=== PATIENT | male | born 1980 | race Caucasian/White ===

== ENCOUNTER 2024-01-09 06:02 | Emergency (ER) | payer SELFPAY ==
--- NOTE | ~2024-01-09 | CT_ITS ---
EXAMINATION: CT abdomen pelvis w con DATE: 01/09/2024 08:08 INDICATION: Epigastric abdominal pain, nausea and vomiting TECHNIQUE: Computed tomography (CT) of the abdomen and pelvis was performed with 100 CC Omnipaque 350 intravenous contrast. Automated exposure control and iterative reconstruction technique were employe d. Exam dose: 1476.98 mGy-cm total exam DLP. COMPARISON: None. FINDINGS: The lung bases are clear of infiltrate or consolidation. Normal heart size. No pericardial or pleural effusion. The liver, gallbladder, bile ducts, pancreas, pancreatic duct and spleen are unremarkable. Normal morphology of the adrenal glands. 8.5 mm right renal cyst. The kidneys are otherwise unremarkable. There is a 3 mm right ureterovesical junction calculus. No other urinary tract calculus or left or right hydroureteronephrosis. The urinary bladder is unremarkable other than mild impression by moderate prostate enlargement. Mult iple prostate calcifications. Normal caliber of the abdominal aorta. No intraperitoneal or retroperitoneal or pelvic mass lesion or adenopathy or ascites. Normal appendix. No bowel obstruction, bowel wall thickening, pneumatosis or intraperitoneal free air . IMPRESSION: 3 mm right ureterovesical junction calculus, without hydroureteronephrosis 8.5 mm right renal cyst Prostate enlargement and calcifications Reviewed, dictated and finalized at [facility] Reviewed, dictated and finalized at [facility] IMPRESSION: 3 mm right ureterovesical junction calculus, without hydroureteron ephrosis 8.5 mm right renal cyst Prostate enlargement and calcifications
[2024-01-09 06:05] VITALS: BP 194/106; PULSE 85; RESP 22; TEMP 36.6; O2SAT 100
--- NOTE | 2024-01-09 06:09 | ECG_ITS ---
Measurements Intervals [place] Rate: 67 P: 68 AL: 249 QRS: 64 QRSD: 114 T: 39 QT: 456 QTc: 483 Interpretive Statements SINUS RHYTHM WITH FIRST DEGREE AV BLOCK MINIMAL Q WAVES- INFERIOR LEADS BORDERLINE ECG NO PREVIOUS ECG AVAILABLE FOR COMPARISON Electronically Signed On 01-09-2024 8:18:37 CDT by Skyler Garcia D.O.
--- NOTE | 2024-01-09 06:28 | PC.NURSE ---
pt admits upon assessment using IV methephetamines last usage was yesterday about 0700 . Pt also admits to be a chronic drinker and states I drink a lot everyday, mixed drinks and straight up but I have not been able to drink much today .
[2024-01-09 06:33] LABS: Basophils Absolute Auto 0.1 K/mm3 (0.0-0.1); Basophils Percent Auto 0.5 % (0.2-1.2); Eosinophils Absolute Auto 0.1 K/mm3 (0-0.3); Eosinophils Percent Auto 0.5 % (0-4.4); Hematocrit 48.2 % (42.0-52.0); Hemoglobin 15.8 g/dL (14.0-18.0); Immature Granulocyte Absolute 0.04 K/mm3 (0.00-0.031); Immature Granulocyte Percent A 0.3 % (0-0.5); Lymphocytes Absolute Auto 2.54 K/mm3 (0.9-3.2); Lymphocytes Percent Auto 21.1 % (18.3-44.2); Mean Corpuscular HGB Conc 32.8 g/dl (32-36); Mean Corpuscular Hemoglobin 28.4 pg (26-34); Mean Corpuscular Volume 86.7 fl (80-100); Mean Platelet Volume 10.1 fl (7.4-10.4); Monocytes Absolute Auto 0.9 K/mm3 (0.1-0.6); Monocytes Percent Auto 7.2 % (2.6-8.5); Neutrophils Absolute Auto 8.5 K/mm3 (1.3-6.7); Neutrophils Percent Auto 70.4 % (45.5-73.1); Platelet Count Result 306 k/mm3 (150-375); Red Blood Count 5.56 M/mm3 (4.6-6.20); Red Cell Distribution Width 13.9 % (11.5-14.5)
--- NOTE | 2024-01-09 07:07 | ED.ABDPAIN ---
HPI - Abdominal Pain General Chief Complaint: Abdominal Pain Stated Complaint: abd pain Time Seen by Provider: 01/09/24 07:04 Source: patient History of Present Illness HPI narrative: 43 years old white male came to the emergency room by private car complaining of epigastric sharp stabbing pain, comes in waves, no aggravating or relieving factors, no radiation. He denies history of abdominal surgery, does not take medicine at home he smokes cigarettes and drinks daily Related Data Allergies Allergy/AdvReac Type Severity Reaction Status Date / Time No Known Allergies Allergy Verified 01/09/24 07:27 Review of Systems Review of Systems: All systems reviewed & are unremarkable except as noted in HPI and below Exam Narrative: General appearance: Well-developed, well-nourished Skin: Normal color Head: Normocephalic, nontraumatic Eyes: Clear conjunctiva ENT: Oropharynx normal, ears normal, nose normal Neck: Supple, nontender Chest and respiratory: Airway patent, no respiratory distress, no accessory muscle use Heart: Regular rate/rhythm Abdomen: Soft, home severe tenderness epigastric area, no organomegaly, quiet bowel sounds Vascular: Normal peripheral pulses, normal capillary refill. Musculoskeletal: Normal range of motion, nontender back Neurologic: Alert and oriented ?3, [employer] is normal as tested, no gross motor deficit Course Vital Signs Vital signs: Vital Signs Temperature 36.6 C 01/09/24 06:05 Pulse Rate 85 01/09/24 06:05 Respiratory Rate 22 H 01/09/24 06:05 Blood Pressure 194/106 H 01/09/24 06:05 Pulse Oximetry 100 01/09/24 06:05 Oxygen Delivery Room Air 01/09/24 06:05 Temperature 36.6 C 01/09/24 06:05 Pulse Rate 86 01/09/24 07:47 Respiratory Rate 17 01/09/24 07:47 Blood Pressure 197/119 H 01/09/24 07:47 Pulse Oximetry 100 01/09/24 07:47 Oxygen Delivery Room Air 01/09/24 06:05 MDM - Abdominal Pain MDM Narrative Medical decision making narrative: Patient came to the hospital with intermittent sharp stabbing pain at the epigastric area Differential diagnosis pancreatitis, gastritis, esophagitis, colitis, constipation, urinary tract infection, kidney stone Blood workup today showed WBC WBC of 12.0 CT abdomen pelvis with IV contrast showed 3 mm right distal ureter stone without hydronephrosis. In the ED patient received 1 L of normal saline, 0.5 Dilaudid IV, Zofran 4 mg IV, Toradol 30 mg IV, Flomax 0.4 mg p.o. Differential Diagnosis Differential diagnosis: Likely other (As above) Medical Records Attestation: I reviewed the patient's medical records. Medical records narrative: As above Lab Data Attestation: I reviewed the patient's lab results. 01/09/24 06:27 01/09/24 08:00 Labs: Lab Results 01/09/24 01/09/24 01/09/24 Range/Units 06:27 07:53 08:00 WBC 12.0 H (4.5-10.0) K/mm3 RBC 5.56 (4.6-6.20) M/mm3 Hgb 15.8 (14.0-18.0) g/dL Hct 48.2 (42.0-52.0) % MCV 86.7 (80-100) fl MCH 28.4 (26-34) pg MCHC 32.8 (32-36) g/dl RDW 13.9 (11.5-14.5) % Plt Count 306 (150-375) k/mm3 MPV 10.1 (7.4-10.4) fl Immature Gran % (Auto) 0.3 (0-0.5) % Neut % (Auto) 70.4 (45.5-73.1) % Lymph % (Auto) 21.1 (18.3-44.2) % [place] % (Auto) 7.2 (2.6-8.5) % Eos % (Auto) 0.5 (0-4.4) % Baso % (Auto) 0.5 (0.2-1.2) % Lymph # (Auto) 2.54 (0.9-3.2) K/mm3 [place] # (Auto) 0.9 H (0.1-0.6) K/mm3 Eos # (Auto) 0.1 (0-0.3) K/mm3 Baso # (Auto) 0.1 (0.0-0.1) K/mm3 Abs Immat Gran (auto) 0.04 H (0.00-0.031) K/mm3 Absolute Neuts (auto) 8.5 H (1.3-6.7) K/mm3 Absolute Nucleated RBC 0.000 (0.0
[2024-01-09 07:47] VITALS: BP 197/119; PULSE 86; RESP 17; O2SAT 100
[2024-01-09] MEDS: HYDROmorphone HCL INJ (*CRX) 1 MG/ML SYR 0.5 MG IV PUSH (07:56)
[2024-01-09] MEDS: SODIUM CHLORIDE 0.9% IV 1,000 ML 999 ML IV CONT (07:56)
[2024-01-09] MEDS: ONDANSETRON INJ 4 MG/2 ML VIAL IV PUSH (07:56)
[2024-01-09 08:07] LABS: Estimated CRCL calculation 101 ml/min; Estimated Glomerular Filt Rate > 60
[2024-01-09 08:18] LABS: Appearance Urine Turbid (Clear); Bacteria Urine None Seen /hpf; Bilirubin Urine Negative (Negative); Blood Urine Negative (Negative); Color Urine Yellow (Yellow); Glucose Urine UA Negative (Negative); Ketones Urine Negative (Negative); Leukocyte Esterase Ur Trace LEU/UL (Negative); Nitrate Urine Negative (Negative); Non Pathogenic Casts 0-2; Protein Urine Negative (Negative); RBC Urine 0-2 /hpf (0-2); Specific Grav Ur 1.015 (1.001-1.035); Squamous Epithelial Cell Urine None Seen /hpf (Few); Urobilinogen Urine 0.2 mg/dL (<2.0); WBC Urine 0-5 /hpf (0-3)
[2024-01-09 08:23] LABS: Alanine Aminotransferase 41 U/L (6-50); Albumin Level 4.5 g/dL (3.5-5.1); Alkaline Phosphatase 151 U/L (38-126); Anion Gap 5 mmol/L (4-12); Aspartate Amino Transferase 37 U/L (17-59); Bilirubin,Total 0.6 mg/dL (0.2-1.3); Blood Urea Nitrogen 14 mg/dL (9-20); Calcium 9.2 mg/dL (8.4-10.2); Carbon Dioxide 29 mmol/L (22-30); Chloride 104 mmol/L (98-107); Estimated CRCL calculation 111 ml/min; Estimated Glomerular Filt Rate > 60; Glucose 138 mg/dL (65-110); Lipase 66 U/L (23-300); Potassium 4.2 mmol/L (3.4-5.0); Sodium 138 mmol/L (137-145)
[2024-01-09 08:31] LABS: Add Urine Microscopic? YES
[2024-01-09 09:24] VITALS: BP 193/120; PULSE 89; RESP 24; TEMP 36.6; O2SAT 100
[2024-01-09] MEDS: KETOROLAC 30 MG/ML VIAL (*BKC) IV PUSH (09:25)
[2024-01-09] MEDS: TAMSULOSIN HCL 0.4 MG CAPSULE PO (09:34)
== END 2024-01-09 09:48 | disposition home or self-care (01) ==
PROVIDERS: Student in an Organized Health Care Education/Training Program; Emergency Provider Emergency Medicine
DX: N20.0 Calculus of kidney (principal); F17.210 Nicotine dependence, cigarettes, uncomplicated
CPT/HCPCS: 36415; 74177; 80053; 81001; 83690; 85025; 93005; 96361; 96374; 96375; 99284; A9270; J1170; J1885; J2405; J7030; Q9967